=== PATIENT | male | born 1955 | race Caucasian/White ===

== ENCOUNTER → 2023-06-09 | Outpatient (CLI) | payer OTHER | END | disposition home or self-care (01) | LOC: RAH 10:46 | PROVIDERS: ATTEND Internal Medicine Gastroenterology | DX: R14.0 Abdominal distension (gaseous) (principal) | CPT/HCPCS: 78264; A9541 ==

== ENCOUNTER → 2023-06-13 | Outpatient (CLI) | payer OTHER | END | disposition home or self-care (01) | LOC: RAH 08:46 → EDUNIT# 09:00 | PROVIDERS: ATTEND Internal Medicine Gastroenterology | DX: K44.9 Diaphragmatic hernia without obstruction or gangrene (principal); K21.9 Gastro-esophageal reflux disease without esophagitis; R93.3 Abnormal findings on diagnostic imaging of other parts of digestive tract; K22.9 Disease of esophagus, unspecified; Z90.49 Acquired absence of other specified parts of digestive tract | CPT/HCPCS: 74240 ==

== ENCOUNTER → 2023-07-03 | Outpatient (CLI) | payer OTHER ==
[2023-07-03 14:23] LABS: BASOPHILS # (AUTO) 0.06 K/uL (0.00-0.20); BASOPHILS % (AUTO) 0.7 % (0.0-5.0); EOSINOPHILS # (AUTO) 0.18 K/uL (0.00-0.70); EOSINOPHILS % (AUTO) 2.1 % (0.0-8.0); HEMATOCRIT 46.9 % (42-54); IMMATURE GRANULOCYTE ABSOLUTE 0.01 K/uL (0-1); LYMPHOCYTES # (AUTO) 2.5 K/uL (1.0-4.8); LYMPHOCYTES % (AUTO) 28.8 % (21.0-51.0); MEAN CORPUSCULAR HEMOGLOBIN 28.7 pg (27.0-33.0); MEAN CORPUSCULAR HGB CONC 33.7 g/dL (32.0-36.0); MEAN CORPUSCULAR VOLUME 85.1 fL (79-99); MONOCYTES # (AUTO) 0.5 K/uL (0.1-1.0); MONOCYTES % (AUTO) 6.3 % (3.0-13.0); NEUTROPHILS # (AUTO) 5.3 K/uL (1.8-7.7); PLATELET COUNT (AUTO) 378 K/uL (130-400); RED BLOOD CELL COUNT(AUTO) 5.51 MIL/uL (4.50-6.20); WHITE BLOOD COUNT (AUTO) 8.5 K/uL (4.8-10.8)
[2023-07-03 14:36] LABS: HEMOGLOBIN A1C 10.7 % (4.0-6.0)
[2023-07-03 14:46] LABS: % IRON SATURATION 16.9 % (30-44)
[2023-07-03 15:11] LABS: ALBUMIN 3.5 g/dL (3.5-5.0); BILIRUBIN,TOTAL 0.3 mg/dL (0.2-1.0); POTASSIUM 4.6 mmol/L (3.5-5.1); THYROID STIMULATING HORMONE 1.88 uIU/mL (0.36-3.74); TOTAL PROTEIN, SERUM 7.7 g/dL (6.0-8.3)
== END | disposition home or self-care (01) ==
LOC: LAB 13:31
PROVIDERS: ATTEND Surgery
DX: K31.84 Gastroparesis (principal); K95.89 Other complications of other bariatric procedure; E11.9 Type 2 diabetes mellitus without complications; K44.9 Diaphragmatic hernia without obstruction or gangrene; K21.00 Gastro-esophageal reflux disease with esophagitis, without bleeding; Z98.84 Bariatric surgery status; Z79.899 Other long term (current) drug therapy
CPT/HCPCS: 36415; 80053; 80061; 82306; 82607; 82728; 82746; 83036; 83540; 83550; 84439; 84443; 84590; 85025

== ENCOUNTER → 2023-07-08 | Outpatient (CLI) | payer OTHER ==
[~2023-07-08] MED LIST: IOHEXOL-350 75 ML VIAL IV ONE
== END ==
LOC: RAH 11:46
PROVIDERS: ATTEND Surgery
DX: K44.9 Diaphragmatic hernia without obstruction or gangrene (principal); K95.89 Other complications of other bariatric procedure; K76.0 Fatty (change of) liver, not elsewhere classified
CPT/HCPCS: 74177; Q9967

== ENCOUNTER → 2023-08-02 | Outpatient (CLI) | payer OTHER | END | disposition home or self-care (01) | LOC: SHCH 14:50 | PROVIDERS: ATTEND Student in an Organized Health Care Education/Training Program | DX: Z01.818 Encounter for other preprocedural examination (principal) | CPT/HCPCS: 93306 ==

== ENCOUNTER 2023-08-21 08:55 | Observation (INO) | payer OTHER ==
[2023-08-20 15:04] VITALS: BP 127/76; PULSE 77; RESP 18
[2023-08-20 15:05] LABS: BASOPHILS # (AUTO) 0.07 K/uL (0.00-0.20); BASOPHILS % (AUTO) 0.7 % (0.0-5.0); EOSINOPHILS # (AUTO) 0.32 K/uL (0.00-0.70); EOSINOPHILS % (AUTO) 3.2 % (0.0-8.0); HEMATOCRIT 44.8 % (42-54); IMMATURE GRANULOCYTE ABSOLUTE 0.02 K/uL (0-1); LYMPHOCYTES # (AUTO) 2.3 K/uL (1.0-4.8); LYMPHOCYTES % (AUTO) 22.6 % (21.0-51.0); MEAN CORPUSCULAR HEMOGLOBIN 28.9 pg (27.0-33.0); MEAN CORPUSCULAR HGB CONC 34.2 g/dL (32.0-36.0); MEAN CORPUSCULAR VOLUME 84.5 fL (79-99); MONOCYTES # (AUTO) 0.7 K/uL (0.1-1.0); MONOCYTES % (AUTO) 6.5 % (3.0-13.0); NEUTROPHILS # (AUTO) 6.8 K/uL (1.8-7.7); NEUTROPHILS % (AUTO) 66.8 % (40.0-77.0); PLATELET COUNT (AUTO) 411 K/uL (130-400); RED CELL DISTRIBUTION WIDTH 12.4 % (11.0-15.5); WHITE BLOOD COUNT (AUTO) 10.1 K/uL (4.8-10.8)
[2023-08-20 15:45] LABS: ALBUMIN 3.6 g/dL (3.5-5.0); BILIRUBIN,TOTAL 0.8 mg/dL (0.2-1.0); CREATININE 0.9 mg/dL (0.5-1.3); POTASSIUM 3.7 mmol/L (3.5-5.1); TOTAL PROTEIN, SERUM 7.4 g/dL (6.0-8.3)
[2023-08-21] VITALS (17 sets, daily range): BP systolic 113–162; BP diastolic 61–81; PULSE 70–86; RESP 10–19; O2SAT 97
[~2023-08-21] VITALS: Ht 175.3 cm; Wt 103.9 kg
[~2023-08-21 08:55] MED LIST changes: +ENAL-89 PO; +GLIM2TAB30 PO; -IOHEXOL-350 75 ML VIAL IV ONE; +METO5TAB2 PO; +OMEP40CA21 PO
[2023-08-21] MEDS ORDERED: IRON/FERROUS SULFATE PO (10:03)
[2023-08-21] MEDS ORDERED: ACET-2743 PO (10:03)
[2023-08-21] MEDS ORDERED: FAMO40TA7 PO (10:03)
[2023-08-21] MEDS ORDERED: MULT-1258 PO (10:03)
[2023-08-21] MEDS ORDERED: METF-444 PO (10:03)
[2023-08-21] MEDS: 0.9%NACL 1000ML 1,000 ML IV ONE (10:04)
[2023-08-21] MEDS ORDERED: BUPIVACAINE/PF 0.5% 30ML VIAL ONE (18:35)
[2023-08-21] MEDS ORDERED: PROPOFOL 10 MG/ML 20ML VIAL IV ONE (18:47)
[2023-08-21] MEDS ORDERED: LIDOCAINE PF 100MG/5ML (2%) SYRINGE 5ML ONE (18:47)
[2023-08-21] MEDS ORDERED: ROCURONIUM BROMIDE 10MG/1ML 5ML VL ONE ×2 (18:47→21:02)
[2023-08-21] MEDS ORDERED: FENTANYL CITRATE PF 50 MCG/1 ML 5ML AMP IV ONE (18:47)
[2023-08-21] MEDS ORDERED: MIDAZOLAM HCL 1 MG/ML 2ML VIAL ONE (18:47)
[2023-08-21] MEDS: CEFAZOLIN SODIUM 2 GM VIAL IVPB ONE (19:16)
[2023-08-21] MEDS ORDERED: NEOSTIGMINE METHYLSULFATE 1MG/ML IV ONE (21:37)
[2023-08-21] MEDS ORDERED: GLYCOPYRROLATE 0.2 MG/ML 5 ML VIAL ONE (21:37)
[2023-08-21] MEDS ORDERED: ONDANSETRON 4MG INJ ONE (21:37)
[2023-08-21] MEDS: MEPERIDINE-PF 25 MG/ML SYG ONE (22:24)
[2023-08-21] MEDS: ONDANSETRON 4MG INJ ONE (22:24)
[2023-08-21] MEDS: KETOROLAC 30MG VIAL (30MG/ML) ONE (22:25)
[2023-08-21] MEDS: ACETAMINOPHEN 1,000 MG/100 ML VIAL IV ONE (22:25)
[2023-08-21] MEDS ORDERED: HYDROMORPHONE 1 MG INJ IVP PRN (23:00)
[2023-08-21] MEDS ORDERED: PROCHLORPERAZINE 10MG/2ML INJ IV PRN (23:00)
[2023-08-21] MEDS: ENOXAPARIN SODIUM 40 MG/0.4 ML SYRINGE SQ SCH (23:00)
[2023-08-21] MEDS: D5LR-20 MEQ KCL 1000 ML 1,000 ML IV SCH (23:00)
[2023-08-21] MEDS ORDERED: ONDANSETRON 4MG INJ IVP PRN (23:00)
[2023-08-21] MEDS ORDERED: KETOROLAC 30MG VIAL (30MG/ML) IV PRN (23:00)
[2023-08-22] VITALS (12 sets, daily range): BP systolic 103–126; BP diastolic 63–75; PULSE 62–81; RESP 18–20; O2SAT 95–96
[2023-08-22] MEDS: HYDROCODONE/ACETAMINOPHEN 7.5/325 MG 15 ML UDCUP PO PRN (01:54)
[2023-08-22] MEDS: CEFAZOLIN SODIUM 2 GM VIAL ONE (01:54)
== END 2023-08-22 15:00 | disposition home or self-care (01) ==
LOC: DAH 08:55 → INTOOBSV 08:56 → 3BH 08:56
PROVIDERS: ADMIT Surgery; ATTEND Surgery
DX: K31.1 Adult hypertrophic pyloric stenosis (principal); K66.0 Peritoneal adhesions (postprocedural) (postinfection); K95.89 Other complications of other bariatric procedure; K31.84 Gastroparesis; K44.9 Diaphragmatic hernia without obstruction or gangrene; K21.00 Gastro-esophageal reflux disease with esophagitis, without bleeding; I10 Essential (primary) hypertension; E11.9 Type 2 diabetes mellitus without complications; M19.90 Unspecified osteoarthritis, unspecified site; E66.9 Obesity, unspecified; Z98.84 Bariatric surgery status; Z79.899 Other long term (current) drug therapy
CPT/HCPCS: 80053; 85025; 86850; 86900; 86901; 36415; 93005; 96372 ×2; 43659; 82948 ×6; 43235; A4600; A4663; A4215 ×2; J3010; J7030; J3490 ×3; J2001; J2250; J2704; J2405 ×2; J1885; J2710; J0665; J2175; J3480 ×2; J0690 ×2; G0168; A4930; A4223; A4213; A4222; A4221; G0378 ×6; J1650